=== PATIENT | male | born 1985 | race Caucasian/White ===

== ENCOUNTER 2019-05-26 16:00 | Emergency (ER) | payer OTHER ==
[2019-05-26] MEDS ORDERED: METHYLPREDNISOLONE 125 MG INJ ONE (16:22)
[2019-05-26] MEDS ORDERED: FAMOTIDINE 20 MG/2 ML VIAL IV ONE (16:23)
[2019-05-26] MEDS ORDERED: DIPHENHYDRAMINE 50 MG/ML VIAL ONE (16:23)
--- NOTE | 2019-05-26 17:19 | EDPHYS ---
Physician Documentation [facility] Name: Alyssa Gold Age: 33 yrs Sex: Male : 1985 Arrival Date: 05/26/2019 Time: 16:02 Bed 5 Private MD: ED Physician Bautista Andujar HPI: 05/25 16:12 This 33 yrs old Male presents to ER via Ambulatory with complaints of rn Allergic Reaction. 16:12 The patient presents with itching, rash. Onset: The symptoms/episode began/occurred rn just prior to arrival. Associated signs and symptoms: Pertinent positives: hives, rash, Pertinent negatives: abdominal pain, chest pain, fever. Possible causes: The patient has no known obvious cause for the symptoms. Severity of symptoms: At their worst the symptoms were mild in the emergency department the symptoms are unchanged. The patient has not experienced similar symptoms in the past. Reports had just eaten at [employer] restaurant, then passed through bath [employer] body [employer], noticed hives and itching of face/neck, mild sob when walking to car, made decision to come for evaluation. No oral swelling. No known allergies other than mild reaction to "stinging caterpillar" when young. . Historical: - Allergies: 16:07 No Known Allergies; ss - Home Meds: 16:07 None [Active]; ss - PMHx: 16:07 None; ss - PSHx: 16:07 None; ss - Immunization history:: Adult Immunizations up to date. - Social history:: Smoking status: Patient denies any tobacco usage or history of. - Family history:: not pertinent. - Hospitalizations: : No recent hospitalization is reported. ROS: 16:12 Constitutional: Negative for fever, chills, and weight loss, Eyes: Negative for injury, rn pain, redness, and discharge, ENT: Negative for injury, pain, and discharge, Cardiovascular: Negative for chest pain, palpitations, and edema, Respiratory: Negative for cough, wheezing, and pleuritic chest pain, Abdomen/GI: Negative for abdominal pain, nausea, vomiting, diarrhea, and constipation, MS/Extremity: Negative for injury and deformity, Skin: + rash and itching to face and neck Neuro: Negative for headache, weakness, numbness, tingling, and seizure. Exam: 16:12 Constitutional: This is a well developed, well nourished patient who is awake, alert, rn and in no acute distress. Head/Face: Normocephalic, atraumatic. Eyes: Pupils equal round and reactive to light, extra-ocular motions intact. ENT: No oral swelling, no stridor Cardiovascular: Regular rate and rhythm. No pulse deficits. Respiratory: Lungs have equal breath sounds bilaterally, clear to auscultation. No increased work of breathing, no retractions or nasal flaring. Abdomen/GI: soft, non-tender Skin: + blanching urticarial rash to face and neck, no bullae, no skin sloughing, no lesions of mucous membranes. MS/ Extremity: Pulses equal, no cyanosis. Neurovascular intact. Full, normal range of motion. Equal circumference. Neuro: Awake and alert, GCS 15, oriented to person, place, time, and situation. Cranial nerves II-XII grossly intact. Motor strength 5/5 in all extremities. Sensory grossly intact. Cerebellar exam normal. Vital Signs: 16:03 BP 187 / 120; Pulse 92; Resp 18; Pulse Ox 99% on R/A; Weight 117.93 kg; Height 6 ft. 3 ss in. (190.50 cm); Pain 0/10; 16:25 BP 145 / 100; Pulse 85; Resp 20; Pulse Ox 100% on R/A; Pain 0/10; em 16:03 Body Mass Index 32.50 (117.93 kg, 190.50 cm) ss MDM: 16:06 Patient medically screened. rn 17:01 Differential diagnosis: urticaria, allergic reaction. Data reviewed: vital signs, rn nurses notes. Counseling: I had a detailed discussion with the patient and/or guardian regarding: the historical points, exam findings, and any diagnostic results supporting the discharge/admit diagnosis, the need for outpatient follow up, to return to the emergency department if symptoms worsen or persist or if there are any questions or concerns that arise at home. Response to treatment: the patient's symptoms have markedly improved after treatment, the patient is now symptom free, and as a result, I will discharge patient. Special discussion: I discussed with the patient/guardian in detail that at this point there is no indication for admission to the hospital. It is understood, however, that if the symptoms persist or worsen the patient needs to return immediately for re-evaluation. ED course: Pt improved redness and urticaria improved, almost completely gone, no dyspnea, no oxygen requirement. Will dc home with instructions to take allergy meds, pepcid, and will prescribe steroids and epi-pen.. 05/25 16:12 Order name: IV Start; Complete Time: 16:15 rn Administered Medications: 16:26 Drug: Benadryl 50 mg Route: IVP; Site: right antecubital; em 17:10 Follow up: Response: No adverse reaction; Marked relief of symptoms em 16:28 Drug: SOLU-Medrol 125 mg Route: IVP; Site: right antecubital; em 17:10 Follow up: Response: No adverse reaction; Marked relief of symptoms em 16:30 Drug: Pepcid 20 mg Route: IVP; Site: right antecubital; em 17:10 Follow up: Response: No adverse reaction; Marked relief of symptoms em Disposition: 05/26/19 17:18 Discharged to Home. Impression: Urticaria, unspecified, Acute allergic reaction. - Condition is Stable. - Discharge Instructions: Hives. - Prescriptions for Prednisone 20 mg Oral Tablet - take 3 tablet by ORAL route once daily for 5 days; 15 tablet. EpiPen 0.3 mg Injection auto- injector - inject 1 pen by INTRAMUSCULAR route as directed Inject into the outer portion of the thigh, through clothing if necessary. Indicated in the emergency treatment of allergic reactions; 2 Pack. - Medication Reconciliation Form, Thank You Letter, Antibiotic Education, Prescription Opioid Use form. - Follow up: Private Physician; When: As needed; Reason: Recheck today's complaints, Re-evaluation by your physician. - Problem is new. - Symptoms have improved. Signatures: Efren Roland RN RN em Bautista Andujar MD MD rn Smirch, Shelby, RN RN ss Corrections: (The following items were deleted from the chart) 17:29 17:18 05/26/2019 17:18 Discharged to Home. Impression: Urticaria, unspecified; Acute ss allergic reaction. Condition is Stable. Forms are Medication Reconciliation Form, Thank You Letter, Antibiotic Education, Prescription Opioid Use. Follow up: Private Physician; When: As needed; Reason: Recheck today's complaints, Re-evaluation by your physician. Problem is new. Symptoms have improved. rn
--- NOTE | 2019-05-26 17:19 | ER ---
Nurse's Notes [facility] Name: Alyssa Gold Age: 33 yrs Sex: Male : 1985 Arrival Date: 05/26/2019 Time: 16:02 Bed 5 Private MD: Diagnosis: Urticaria, unspecified;Acute allergic reaction Presentation: 05/25 16:03 Chief complaint: Patient states: Facial swelling, redness and itching that began ss suddenly 20 minutes ago while walking through bath and body works. Coronavirus screen: The patient has NOT traveled to a country currently being monitored by the [facility] within the last 14 days. Proceed with normal triage procedures. Ebola Screen: Patient denies exposure to infectious person. Patient denies travel to an Ebola-affected area in the 21 days before illness onset. Onset: The symptoms/episode began/occurred 20 minute(s) ago. 16:03 Method Of Arrival: Ambulatory ss 16:08 Anaphylaxis evaluation, the patient reports or I have noted the following symptoms ss which indicate a significant risk of anaphylaxis: no signs or symptoms of anaphylaxis were noted. Initial Sepsis Screen: Does the patient meet any 2 criteria? No. Patient's initial sepsis screen is negative. Does the patient have a suspected source of infection? No. Patient's initial sepsis screen is negative. Risk Assessment: Do you want to hurt yourself or someone else? Patient reports no desire to harm self or others. 16:08 Acuity: BLAZE 3 ss Historical: - Allergies: 16:07 No Known Allergies; ss - Home Meds: 16:07 None [Active]; ss - PMHx: 16:07 None; ss - PSHx: 16:07 None; ss - Immunization history:: Adult Immunizations up to date. - Social history:: Smoking status: Patient denies any tobacco usage or history of. - Family history:: not pertinent. - Hospitalizations: : No recent hospitalization is reported. Screenin:10 Abuse screen: Denies threats or abuse. Nutritional screening: No deficits noted. em Tuberculosis screening: No symptoms or risk factors identified. Fall Risk None identified. Assessment: 16:10 General: Appears in no apparent distress. comfortable, Behavior is calm, cooperative, em Reports allergic reaction to unknown substance after walking into bath and body works. Pain: Denies pain. Neuro: Level of Consciousness is awake, alert, obeys commands, Oriented to person, place, time, situation, Appropriate for age. Cardiovascular: Capillary refill < 3 seconds Patient's skin is warm and dry. Respiratory: Airway is patent Respiratory effort is even, unlabored, Respiratory pattern is regular, symmetrical, Breath sounds are clear bilaterally. Denies shortness of breath. GI: Abdomen is flat, Patient currently denies nausea, vomiting. EENT: swelling noted to top lip. Derm: Skin is intact, is healthy with good turgor, Skin is pink, warm \T\ dry. redness noted to face Reports itching. Musculoskeletal: Capillary refill < 3 seconds, Range of motion: intact in all extremities. Vital Signs: 16:03 BP 187 / 120; Pulse 92; Resp 18; Pulse Ox 99% on R/A; Weight 117.93 kg; Height 6 ft. 3 ss in. (190.50 cm); Pain 0/10; 16:25 BP 145 / 100; Pulse 85; Resp 20; Pulse Ox 100% on R/A; Pain 0/10; em 16:03 Body Mass Index 32.50 (117.93 kg, 190.50 cm) ss ED Course: 16:02 Patient arrived in ED. ag5 16:06 Bautista Andujar MD is Attending Physician. ss 16:07 Arm band placed on right wrist. ss 16:08 Triage completed. ss 16:10 Patient has correct armband on for positive identification. Placed in gown. Bed in low em position. Call light in reach. Adult w/ patient. Pulse ox on. NIBP on. 16:16 Efren Roland, RN is Primary Nurse. em 16:20 Inserted saline lock: 22 gauge in right antecubital area, using aseptic technique. em 17:28 No provider procedures requiring assistance completed. IV discontinued, intact, ss bleeding controlled, No redness/swelling at site. Pressure dressing applied. Administered Medications: 16:26 Drug: Benadryl 50 mg Route: IVP; Site: right antecubital; em 17:10 Follow up: Response: No adverse reaction; Marked relief of symptoms em 16:28 Drug: SOLU-Medrol 125 mg Route: IVP; Site: right antecubital; em 17:10 Follow up: Response: No adverse reaction; Marked relief of symptoms em 16:30 Drug: Pepcid 20 mg Route: IVP; Site: right antecubital; em 17:10 Follow up: Response: No adverse reaction; Marked relief of symptoms em Outcome: 17:18 Discharge ordered by . rn 17:28 Discharged to home ambulatory. ss 17:28 Condition: improved 17:28 Discharge instructions given to patient, family, Instructed on discharge instructions, follow up and referral plans. medication usage, Demonstrated understanding of instructions, follow-up care, medications, Prescriptions given X 2. 17:29 Patient left the ED. ss Signatures: Efren Roland RN RN Bautista Andujar MD MD rn Smirch, Shelby, RN RN Ai Kirkpatrick ag5
[2019-05-26 17:51] VITALS: BP 145/100; O2SAT 100
== END 2019-05-26 17:29 | disposition home or self-care (01) ==
LOC: ER 16:00
DX: L50.9 Urticaria, unspecified (principal); T78.40XA Allergy, unspecified, initial encounter; X58.XXXA Exposure to other specified factors, initial encounter
CPT/HCPCS: 96375; 96374; 99284; J1200; J2930